=== PATIENT | female | born 2000 | race African-American/Black ===

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

== ENCOUNTER 2022-03-15 14:54 | Emergency (ER) | payer MEDICAID ==
[~2022-03-15] VITALS: Ht 162.6 cm; Wt 63.0 kg
[2022-03-15 16:01] LABS: CLARITY URINE CLEAR (CLEAR); COLOR URINE DARK YELLOW (YELLOW); KETONES URINE TRACE (NEGATIVE); LEUKOCYTE ESTERASE URINE NEGATIVE (NEGATIVE); NITRITE URINE NEGATIVE (NEGATIVE); OCCULT BLOOD URINE NEGATIVE (NEGATIVE); PROTEIN URINE TRACE (NEGATIVE); SPECIFIC GRAVITY URINE 1.035 (1.005-1.030)
[2022-03-15] MEDS ORDERED: ONDA4TAB50 PO (18:00)
[2022-03-15] MEDS ORDERED: LIDOCAINE HCL 1% 20ML VIAL (Pyxis) INJ INFIL ONE (18:00)
[2022-03-15] MEDS ORDERED: DOXY100T28 PO (18:00)
[2022-03-15] MEDS ORDERED: ALBU18HF2 IH (18:00)
[2022-03-15] MEDS ORDERED: CEFTRIAXONE SODIUM 500 MG/VIAL IM ONE (18:00)
[2022-03-15 18:55] VITALS: BP 122/69
[2022-03-18 05:12] LABS: NEISSERIA GONORRHOEAE NAA Negative (Negative)
== END 2022-03-15 18:55 | disposition home or self-care (01) ==
LOC: ER 14:54
DX: N72 Inflammatory disease of cervix uteri (principal); J45.909 Unspecified asthma, uncomplicated; J20.9 Acute bronchitis, unspecified
CPT/HCPCS: 81003; 81025; 87210; 87491; 87591; 96372; 99283; J0696; J3490

== ENCOUNTER 2022-04-07 20:12 | Emergency (ER) | payer MEDICAID, MEDICARE ==
[~2022-04-07] VITALS: Ht 162.6 cm; Wt 64.3 kg
[~2022-04-07 20:12] MED LIST: ALBU18HF2 IH; DOXY100T28 PO; ONDA4TAB50 PO
[2022-04-07 23:16] LABS: CLARITY URINE CLEAR (CLEAR); COLOR URINE YELLOW (YELLOW); KETONES URINE NEGATIVE (NEGATIVE); LEUKOCYTE ESTERASE URINE NEGATIVE (NEGATIVE); NITRITE URINE NEGATIVE (NEGATIVE); OCCULT BLOOD URINE NEGATIVE (NEGATIVE); PH URINE 6.5 (4.5-8.0); PROTEIN URINE NEGATIVE (NEGATIVE); SPECIFIC GRAVITY URINE 1.021 (1.005-1.030)
[2022-04-07 23:35] VITALS: BP 120/60
== END 2022-04-07 23:36 | disposition home or self-care (01) ==
LOC: ER 20:12
DX: R10.2 Pelvic and perineal pain (principal); J45.909 Unspecified asthma, uncomplicated; Z98.890 Other specified postprocedural states
CPT/HCPCS: 81003; 81025; 99283

== ENCOUNTER 2022-04-24 00:14 | Emergency (ER) | payer MEDICAID, MEDICARE ==
[~2022-04-24] VITALS: Ht 162.6 cm; Wt 67.0 kg
[2022-04-24 00:26] VITALS: BP 108/59
[2022-04-24] MEDS ORDERED: CEFTRIAXONE SODIUM 1 G/VIAL IM ONE (05:45)
[2022-04-24] MEDS ORDERED: DOXY100C5 MT (05:54)
[2022-04-24 05:57] LABS: CLARITY URINE CLOUDY (CLEAR); COLOR URINE DARK YELLOW (YELLOW); KETONES URINE TRACE (NEGATIVE); LEUKOCYTE ESTERASE URINE NEGATIVE (NEGATIVE); NITRITE URINE NEGATIVE (NEGATIVE); OCCULT BLOOD URINE 2+ (NEGATIVE); PH URINE 5.5 (4.5-8.0); PROTEIN URINE 1+ (NEGATIVE); SPECIFIC GRAVITY URINE 1.036 (1.005-1.030)
[2022-04-24 06:33] LABS: *AMPHETAMINES SCREEN URINE NEGATIVE (NEGATIVE); *BARBITURATES SCREEN URINE NEGATIVE (NEGATIVE); *BENZODIAZEPINES SCREEN URINE NEGATIVE (NEGATIVE); *COCAINE SCREEN URINE NEGATIVE (NEGATIVE); METHADONE URINE SCREEN NEGATIVE (NEGATIVE); OPIATES URINE SCREEN NEGATIVE (NEGATIVE); PHENCYCLIDINE URINE SCREEN NEGATIVE (NEGATIVE)
[2022-04-24 06:34] LABS: CANNABINOID URINE SCREEN PRESUMTIVE POSITIVE (NEGATIVE)
[2022-04-26 08:07] LABS: NEISSERIA GONORRHOEAE NAA Negative (Negative)
== END 2022-04-24 06:19 | disposition home or self-care (01) ==
LOC: ER 00:44
DX: Z20.2 Contact with and (suspected) exposure to infections with a predominantly sexual mode of transmission (principal); F12.10 Cannabis abuse, uncomplicated; J45.909 Unspecified asthma, uncomplicated
CPT/HCPCS: 80305; 81003; 81025; 87491; 87591; 96372; 99283; J0696

== ENCOUNTER 2022-06-16 14:43 | Emergency (ER) | payer MEDICAID ==
[~2022-06-16] VITALS: Ht 162.6 cm; Wt 67.0 kg
[~2022-06-16 14:43] MED LIST changes: +DOXY100C5 MT
[2022-06-16 15:02] VITALS: BP 103/54
== END 2022-06-16 18:40 | disposition left against medical advice (07) ==
LOC: ER 14:43
DX: Z53.21 Procedure and treatment not carried out due to patient leaving prior to being seen by health care provider (principal)

== ENCOUNTER 2022-07-29 22:23 | Emergency (ER) | payer MEDICAID ==
[~2022-07-29] VITALS: Ht 162.6 cm; Wt 63.8 kg
[2022-07-29 22:30] VITALS: BP 107/53
[2022-07-30 00:09] LABS: CLARITY URINE CLOUDY (CLEAR); COLOR URINE YELLOW (YELLOW); KETONES URINE NEGATIVE (NEGATIVE); LEUKOCYTE ESTERASE URINE TRACE (NEGATIVE); NITRITE URINE NEGATIVE (NEGATIVE); OCCULT BLOOD URINE NEGATIVE (NEGATIVE); PH URINE 6.5 (4.5-8.0); PROTEIN URINE NEGATIVE (NEGATIVE); SPECIFIC GRAVITY URINE 1.019 (1.005-1.030); UROBILINOGEN URINE 0.2 E.U./dL (0.2-1.0)
[2022-07-31] MEDS ORDERED: DOXY100T2 MT (13:22)
== END 2022-07-30 05:14 | disposition left against medical advice (07) ==
LOC: ER 22:23
DX: Z53.21 Procedure and treatment not carried out due to patient leaving prior to being seen by health care provider (principal)
CPT/HCPCS: 81003; 81025; 99283

== ENCOUNTER 2022-07-31 09:29 | Emergency (ER) | payer MEDICAID ==
[~2022-07-31] VITALS: Ht 154.9 cm; Wt 63.0 kg
[2022-07-31 09:30] VITALS: BP 107/64
[2022-07-31] MEDS ORDERED: CEFTRIAXONE SODIUM 500 MG/VIAL IM ONE (11:30)
[2022-07-31] MEDS ORDERED: CEFTRIAXONE 1 G PREMIX 50 ML IV ONE (12:15)
[2022-07-31 12:19] LABS: BASOPHILS % 0.3 % (0.0-2.0); HEMATOCRIT. 41.8 % (36.0-48.0); HEMOGLOBIN. 13.9 g/dL (12.0-16.0); LYMPHOCYTES % 10.2 % (20.0-50.0); MEAN CORPUSCULAR HEMOGLOBIN 31.1 pg (28.0-32.0); MEAN PLATELET VOLUME 8.9 fl (7.4-10.4); MONOCYTES % 2.4 % (2.0-8.0); NEUTROPHILS % 87.1 % (40.0-76.0); PLATELET 273 x1000/uL (130-400); RED BLOOD CELL COUNT 4.45 mill/uL (4.2-5.4); RED CELL DISTRIBUTION WIDTH 14.6 % (11.6-14.6)
[2022-07-31 12:20] LABS: CLARITY URINE CLOUDY (CLEAR); COLOR URINE YELLOW (YELLOW); KETONES URINE TRACE (NEGATIVE); LEUKOCYTE ESTERASE URINE 1+ (NEGATIVE); NITRITE URINE NEGATIVE (NEGATIVE); OCCULT BLOOD URINE NEGATIVE (NEGATIVE); PH URINE 8.5 (4.5-8.0); PROTEIN URINE 2+ (NEGATIVE); SPECIFIC GRAVITY URINE 1.029 (1.005-1.030)
[2022-07-31 12:49] LABS: CHLORIDE 105 mEq/L (98-107)
[2022-07-31 12:56] LABS: ETHANOL BLOOD < 10 mg/dL
[2022-07-31 13:18] LABS: HCG SCREEN NEGATIVE
[2022-07-31] MEDS ORDERED: DOXY100T2 MT (13:22)
[2022-07-31 13:49] LABS: *AMPHETAMINES SCREEN URINE NEGATIVE (NEGATIVE); *BARBITURATES SCREEN URINE NEGATIVE (NEGATIVE); *BENZODIAZEPINES SCREEN URINE NEGATIVE (NEGATIVE); *COCAINE SCREEN URINE NEGATIVE (NEGATIVE); METHADONE URINE SCREEN NEGATIVE (NEGATIVE); OPIATES URINE SCREEN NEGATIVE (NEGATIVE); PHENCYCLIDINE URINE SCREEN NEGATIVE (NEGATIVE)
[2022-07-31 15:30] LABS: CANNABINOID URINE SCREEN PRESUMTIVE POSITIVE (NEGATIVE)
== END 2022-07-31 13:29 | disposition home or self-care (01) ==
LOC: ER 09:29
DX: N89.8 Other specified noninflammatory disorders of vagina (principal); Z20.2 Contact with and (suspected) exposure to infections with a predominantly sexual mode of transmission
CPT/HCPCS: 36415; 80053; 80305; 80320; 81003; 81025; 83690; 84703; 85025; 87491; 87591; 96365; 99284; J0696; G0480

== ENCOUNTER 2022-08-30 12:43 | Emergency (ER) | payer MEDICAID ==
[~2022-08-30] VITALS: Ht 162.6 cm; Wt 63.0 kg
[~2022-08-30 12:43] MED LIST changes: +DOXY100T2 MT
[2022-08-30 12:55] VITALS: BP 117/74
[2022-08-30] MEDS ORDERED: ACETAMINOPHEN 325MG TABLET PO STA (14:24)
[2022-08-30 14:52] LABS: CLARITY URINE CLEAR (CLEAR); COLOR URINE YELLOW (YELLOW); KETONES URINE TRACE (NEGATIVE); LEUKOCYTE ESTERASE URINE NEGATIVE (NEGATIVE); NITRITE URINE NEGATIVE (NEGATIVE); OCCULT BLOOD URINE TRACE (NEGATIVE); PROTEIN URINE TRACE (NEGATIVE)
[2022-08-30] MEDS ORDERED: NAPR-681 PO (16:35)
[2022-08-30] MEDS ORDERED: METR-167 PO (16:35)
[2022-08-30] MEDS ORDERED: DOXY100T28 MT (16:35)
[2022-08-30] MEDS ORDERED: CEFTRIAXONE SODIUM 500 MG/VIAL IM ONE (16:45)
[2022-08-30] MEDS ORDERED: LIDOCAINE HCL 1% 20ML VIAL (Pyxis) INJ INFIL ONE (16:45)
[2022-09-03 07:07] LABS: NEISSERIA GONORRHOEAE NAA Negative (Negative)
== END 2022-08-30 17:02 | disposition home or self-care (01) ==
LOC: ER 14:19
DX: N72 Inflammatory disease of cervix uteri (principal); N76.0 Acute vaginitis; F12.10 Cannabis abuse, uncomplicated
CPT/HCPCS: 81003; 81025; 87210; 87491; 87591; 96372; 99283; J0696

== ENCOUNTER 2022-12-27 15:50 | Emergency (ER) | payer MEDICAID ==
[~2022-12-27] VITALS: Ht 162.6 cm; Wt 60.0 kg
[~2022-12-27 15:50] MED LIST changes: +DOXY100T28 MT; +METR-167 PO; +NAPR-681 PO
[2022-12-27 15:58] VITALS: BP 103/86
[2022-12-27] MEDS ORDERED: PHEN-910 PO (16:23)
[2022-12-27] MEDS ORDERED: DOXY100C5 PO (16:23)
[2022-12-27] MEDS ORDERED: CEPH500C2 PO (16:23)
[2022-12-27] MEDS ORDERED: DOXYCYCLINE HYCLATE 100MG CAPSULE PO ONE (16:30)
[2022-12-27] MEDS ORDERED: CEFTRIAXONE SODIUM 500 MG/VIAL IM ONE (16:30)
[2022-12-27] MEDS ORDERED: LIDOCAINE HCL 1% 20ML VIAL (Pyxis) INJ INFIL ONE (16:30)
[2022-12-27 16:50] LABS: CLARITY URINE CLOUDY (CLEAR); COLOR URINE YELLOW (YELLOW); KETONES URINE NEGATIVE (NEGATIVE); LEUKOCYTE ESTERASE URINE 3+ (NEGATIVE); NITRITE URINE NEGATIVE (NEGATIVE); OCCULT BLOOD URINE NEGATIVE (NEGATIVE); PROTEIN URINE NEGATIVE (NEGATIVE); SPECIFIC GRAVITY URINE 1.017 (1.005-1.030); UROBILINOGEN URINE 0.2 E.U./dL (0.2-1.0)
[2022-12-27 16:57] LABS: HCG SCREEN NEGATIVE
[2022-12-30 04:07] LABS: NEISSERIA GONORRHOEAE NAA Negative (Negative)
== END 2022-12-27 16:46 | disposition home or self-care (01) ==
LOC: ER 15:50
DX: N39.0 Urinary tract infection, site not specified (principal); J45.909 Unspecified asthma, uncomplicated; F12.90 Cannabis use, unspecified, uncomplicated; Z11.3 Encounter for screening for infections with a predominantly sexual mode of transmission
CPT/HCPCS: 81003; 81025; 84703; 87491; 87591; 96372; 99283; J0696; J3490

== ENCOUNTER 2024-04-15 20:03 | Emergency (ER) | payer MEDICAID ==
[~2024-04-15] VITALS: Ht 162.6 cm; Wt 67.0 kg
[~2024-04-15 20:03] MED LIST changes: +CEPH500C2 PO; +DOXY100C5 PO; +PHEN-910 PO
[2024-04-15 20:29] VITALS: TEMP 98.2; O2SAT 96
[2024-04-15 21:39] LABS: CLARITY URINE TURBID (CLEAR); COLOR URINE DARK YELLOW (YELLOW); GLUCOSE URINE NEGATIVE (NEGATIVE); KETONES URINE TRACE (NEGATIVE); LEUKOCYTE ESTERASE URINE 3+ (NEGATIVE); NITRITE URINE NEGATIVE (NEGATIVE); OCCULT BLOOD URINE 1+ (NEGATIVE); PH URINE 6.5 (4.5-8.0); PROTEIN URINE 2+ (NEGATIVE); SPECIFIC GRAVITY URINE 1.032 (1.005-1.030)
[2024-04-15 22:19] LABS: BACTERIA URINE 1+; SQUAMOUS EPITHELIAL CELL URINE 2+ /lpf (RARE/1+); WBC URINE 25-50 /hpf (0-2)
[2024-04-15] MEDS ORDERED: METR-167 PO (22:56)
[2024-04-15] MEDS ORDERED: DOXY100C5 MT (22:56)
[2024-04-15] MEDS ORDERED: CEFTRIAXONE SODIUM 500MG VIAL IM ONE (23:00)
[2024-04-15] MEDS ORDERED: DOXYCYCLINE HYCLATE 100MG CAPSULE PO ONE (23:00)
[2024-04-15] MEDS: DOXYCYCLINE HYCLATE 100MG CAPSULE PO NR (23:16)
[2024-04-15] MEDS: CEFTRIAXONE SODIUM 500MG VIAL IM NR (23:17)
[2024-04-15 23:22] VITALS: BP 100/73; PULSE 67; RESP 14
[2024-04-18 13:07] LABS: CHLAMYDIA TRACHOMATIS NAA Negative (Negative); NEISSERIA GONORRHOEAE NAA Negative (Negative)
== END 2024-04-15 23:25 | disposition home or self-care (01) ==
LOC: ER 20:03
DX: N76.0 Acute vaginitis (principal); J45.909 Unspecified asthma, uncomplicated; Z98.890 Other specified postprocedural states; Z79.899 Other long term (current) drug therapy
CPT/HCPCS: 87491; 87591; 81003; 81025; 87106; 87086; 96372; 99283; J0696; Z7610 ×2

== ENCOUNTER 2024-05-03 18:01 | Emergency (ER) | payer MEDICAID ==
[~2024-05-03] VITALS: Ht 170.2 cm; Wt 61.0 kg
[2024-05-03 18:10] VITALS: O2SAT 98
[2024-05-03 20:07] LABS: CLARITY URINE CLOUDY (CLEAR); COLOR URINE DARK YELLOW (YELLOW); GLUCOSE URINE NEGATIVE (NEGATIVE); KETONES URINE 2+ (NEGATIVE); LEUKOCYTE ESTERASE URINE 2+ (NEGATIVE); NITRITE URINE NEGATIVE (NEGATIVE); OCCULT BLOOD URINE 1+ (NEGATIVE); PROTEIN URINE TRACE (NEGATIVE); SPECIFIC GRAVITY URINE 1.032 (1.005-1.030)
[2024-05-03 20:22] LABS: BASOPHILS % 0.2 % (0.0-2.0); EOSINOPHILS % 0.5 % (0.0-5.0); HEMATOCRIT. 37.6 % (36.0-48.0); HEMOGLOBIN. 12.8 g/dL (12.0-16.0); LYMPHOCYTES % 33.9 % (20.0-50.0); MEAN CORPUSCULAR HEMOGLOBIN 32.3 pg (28.0-32.0); MEAN CORPUSCULAR HGB CONC 34.1 g/dL (31.0-37.0); MEAN CORPUSCULAR VOLUME 94.7 fL (81.0-99.0); MEAN PLATELET VOLUME 8.5 fl (7.4-10.4); MONOCYTES % 5.1 % (2.0-8.0); NEUTROPHILS % 60.3 % (40.0-76.0); PLATELET 251 x1000/uL (130-400); RED BLOOD CELL COUNT 3.97 mill/uL (4.2-5.4); RED CELL DISTRIBUTION WIDTH 14.7 % (11.6-14.6); WHITE BLOOD COUNT 7.9 x1000/uL (4.5-11.0)
[2024-05-03 20:25] LABS: CHLORIDE 106 mEq/L (98-107); POTASSIUM 3.1 mEq/L (3.5-5.1); SODIUM 137 mEq/L (136-145)
[2024-05-03 20:26] LABS: CALCIUM 9.5 mg/dL (8.7-10.4); CARBON DIOXIDE 25 mEq/L (21-32)
[2024-05-03 20:30] LABS: BACTERIA URINE 2+; SQUAMOUS EPITHELIAL CELL URINE 2+ /lpf (RARE/1+)
[2024-05-03 20:31] LABS: CREATININE 0.8 mg/dL (0.6-1.0); GLUCOSE 96 mg/dL (70-105); UREA NITROGEN BLOOD 8 mg/dL (9-23)
[2024-05-03 20:31] LABS: YEAST URINE FEW
[2024-05-03 20:32] LABS: B-HCG QUANTITATIVE 673 mIU/mL (<3)
[2024-05-03] MEDS ORDERED: NITR-87 MT (21:03)
[2024-05-03] MEDS: CEFTRIAXONE SODIUM 500MG VIAL IM ONE (21:27)
[2024-05-03] MEDS: AZITHROMYCIN 500 MG TABLET PO ONE (21:27)
[2024-05-03] MEDS: RHO(D) IMMUNE GLOBULIN 300 MCG/SYR IM NR (22:31)
[2024-05-03 22:32] VITALS: BP 104/83; PULSE 76; RESP 15; TEMP 37.16964; O2SAT 98
[2024-05-06 06:08] LABS: CHLAMYDIA TRACHOMATIS NAA Negative (Negative); NEISSERIA GONORRHOEAE NAA Negative (Negative)
== END 2024-05-03 22:32 | disposition home or self-care (01) ==
LOC: ER 18:01
DX: O20.0 Threatened abortion (principal); Z3A.01 Less than 8 weeks gestation of pregnancy; O23.41 Unspecified infection of urinary tract in pregnancy, first trimester; N39.0 Urinary tract infection, site not specified
CPT/HCPCS: 87491; 87591; 80048; 81003; 84702; 85025; 86850; 86900; 86901; 36415; 76830; 76856; 90471; 96372; 99285; 90384; J0696; Z7610; 36430; J2791

== ENCOUNTER 2024-05-17 22:00 | Emergency (ER) | payer MEDICAID ==
[~2024-05-17] VITALS: Ht 170.2 cm; Wt 68.0 kg
[~2024-05-17 22:00] MED LIST changes: +NITR-87 MT
[2024-05-17 22:22] VITALS: O2SAT 99
[2024-05-17 23:26] LABS: BASOPHILS % 0.3 % (0.0-2.0); EOSINOPHILS % 0.1 % (0.0-5.0); HEMOGLOBIN. 11.4 g/dL (12.0-16.0); MEAN CORPUSCULAR HEMOGLOBIN 32.6 pg (28.0-32.0); MEAN CORPUSCULAR HGB CONC 33.5 g/dL (31.0-37.0); MEAN CORPUSCULAR VOLUME 97.5 fL (81.0-99.0); MEAN PLATELET VOLUME 8.5 fl (7.4-10.4); NEUTROPHILS % 78.6 % (40.0-76.0); PLATELET 216 x1000/uL (130-400); RED BLOOD CELL COUNT 3.49 mill/uL (4.2-5.4); RED CELL DISTRIBUTION WIDTH 15.4 % (11.6-14.6); WHITE BLOOD COUNT 10.1 x1000/uL (4.5-11.0)
[2024-05-17 23:38] LABS: INR 1.2
[2024-05-18 00:19] LABS: HCG SCREEN POSITIVE
[2024-05-18] MEDS: SODIUM CHLORIDE 0.9% 1,000 ML IV ONE (00:33)
[2024-05-18] MEDS: ONDANSETRON HCL 4MG/2ML INJ IV NR (00:34)
[2024-05-18] MEDS: ACETAMINOPHEN 1000MG/100ML 100 ML IV ONE (00:34)
[2024-05-18] MEDS: ONDANSETRON HCL 4MG/2ML INJ IV ONE (00:34)
[2024-05-18 00:44] VITALS: BP 103/58; PULSE 73; RESP 18; TEMP 36.55848; O2SAT 98
[2024-05-18] MEDS ORDERED: RHO(D) IMMUNE GLOBULIN 300 MCG/SYR IM ONE (01:00)
[2024-05-18 02:04] LABS: CHLORIDE 105 mEq/L (98-107); POTASSIUM 3.5 mEq/L (3.5-5.1); SODIUM 137 mEq/L (136-145)
[2024-05-18 02:05] LABS: CARBON DIOXIDE 21 mEq/L (21-32)
[2024-05-18 02:10] LABS: CREATININE 0.6 mg/dL (0.6-1.0); GLUCOSE 74 mg/dL (70-105)
[2024-05-18 02:11] LABS: UREA NITROGEN BLOOD 6 mg/dL (9-23)
[2024-05-18 02:12] LABS: ALANINE AMINOTRANSFERASE 10 IU/L (10-49); ALBUMIN 3.9 g/dL (3.2-4.8); ASPARTATE AMINOTRANSFERASE 23 IU/L (<34)
[2024-05-18 02:13] LABS: BILIRUBIN DIRECT 0.3 mg/dL (<=3.0); PROTEIN TOTAL 6.5 g/dL (6.0-8.3)
[2024-05-18 02:30] LABS: B-HCG QUANTITATIVE 87785 mIU/mL (<3)
[2024-05-18] MEDS ORDERED: ONDA4TAB50 MT (03:03)
[2024-05-18] MEDS ORDERED: ACET-2708 MT (03:03)
== END 2024-05-18 03:50 | disposition home or self-care (01) ==
LOC: ER 22:00
DX: O20.0 Threatened abortion (principal); J45.909 Unspecified asthma, uncomplicated; F12.10 Cannabis abuse, uncomplicated; Z3A.01 Less than 8 weeks gestation of pregnancy; Z79.899 Other long term (current) drug therapy
CPT/HCPCS: 84703; 85025; 85610; 86900; 86901; 36415; 76801; 76817; 99285; 80076; 80048; 84702; 83690; 90384; 96365; 96375; J7030; J2405; Z7610 ×2; J0131

== ENCOUNTER 2024-05-30 13:16 | Emergency (ER) | payer MEDICAID ==
[~2024-05-30] VITALS: Ht 165.1 cm; Wt 70.0 kg
[~2024-05-30 13:16] MED LIST changes: +ACET-2708 MT; +ONDA4TAB50 MT
[2024-05-30 13:20] VITALS: BP 104/68; PULSE 80; RESP 16; TEMP 98.5; O2SAT 99
[2024-05-30 16:30] LABS: BASOPHILS % 0.2 % (0.0-2.0); EOSINOPHILS % 0.5 % (0.0-5.0); HEMATOCRIT. 35.6 % (36.0-48.0); HEMOGLOBIN. 12.1 g/dL (12.0-16.0); LYMPHOCYTES % 22.5 % (20.0-50.0); MEAN CORPUSCULAR HEMOGLOBIN 32.6 pg (28.0-32.0); MEAN CORPUSCULAR HGB CONC 33.9 g/dL (31.0-37.0); MEAN CORPUSCULAR VOLUME 96.2 fL (81.0-99.0); MEAN PLATELET VOLUME 8.2 fl (7.4-10.4); MONOCYTES % 6.6 % (2.0-8.0); NEUTROPHILS % 70.2 % (40.0-76.0); PLATELET 233 x1000/uL (130-400); RED CELL DISTRIBUTION WIDTH 14.9 % (11.6-14.6); WHITE BLOOD COUNT 8.3 x1000/uL (4.5-11.0)
[2024-05-30 16:38] LABS: CHLORIDE 105 mEq/L (98-107); POTASSIUM 3.8 mEq/L (3.5-5.1); SODIUM 135 mEq/L (136-145)
[2024-05-30 16:39] LABS: CARBON DIOXIDE 23 mEq/L (21-32)
[2024-05-30 16:40] LABS: CALCIUM 9.3 mg/dL (8.7-10.4)
[2024-05-30 16:44] LABS: CREATININE 0.7 mg/dL (0.6-1.0); GLUCOSE 80 mg/dL (70-105)
[2024-05-30 16:58] LABS: B-HCG QUANTITATIVE > 200000 mIU/mL (<3); UREA NITROGEN BLOOD < 5 mg/dL (9-23)
[2024-05-30] MEDS: ACETAMINOPHEN 325MG TABLET PO ONE (17:43)
[2024-05-30] MEDS: ONDANSETRON 4MG ODT PO PRN (17:43)
[2024-05-30 18:23] LABS: CLARITY URINE CLEAR (CLEAR); COLOR URINE RED (YELLOW); GLUCOSE URINE NEGATIVE (NEGATIVE); KETONES URINE NEGATIVE (NEGATIVE); LEUKOCYTE ESTERASE URINE TRACE (NEGATIVE); NITRITE URINE NEGATIVE (NEGATIVE); OCCULT BLOOD URINE 3+ (NEGATIVE); PH URINE 6.5 (4.5-8.0); PROTEIN URINE 1+ (NEGATIVE); SPECIFIC GRAVITY URINE 1.004 (1.005-1.030); UROBILINOGEN URINE 0.2 E.U./dL (0.2-1.0)
[2024-05-30 18:40] LABS: BACTERIA URINE 1+; RBC URINE TNTC /hpf (0-2); SQUAMOUS EPITHELIAL CELL URINE 1+ /lpf (RARE/1+)
[2024-05-30] MEDS: RHO(D) IMMUNE GLOBULIN 300 MCG/SYR IM ONE (18:44)
== END 2024-05-30 18:46 | disposition home or self-care (01) ==
LOC: ER 13:16
DX: O46.91 Antepartum hemorrhage, unspecified, first trimester (principal); O26.891 Other specified pregnancy related conditions, first trimester; J45.909 Unspecified asthma, uncomplicated; Z3A.01 Less than 8 weeks gestation of pregnancy; Z79.899 Other long term (current) drug therapy
CPT/HCPCS: 80048; 81003; 84702; 85025; 86850; 86870; 86900; 86901; 36415; 76830; 76856; 90384 ×2; 96372; 99285; Q0162; 36430; J2791

== ENCOUNTER 2024-07-17 05:50 | Emergency (ER) | payer MEDICAID ==
[~2024-07-17] VITALS: Ht 165.1 cm; Wt 62.0 kg
[2024-07-17 05:54] VITALS: O2SAT 98
[2024-07-17 06:35] LABS: CHLORIDE 110 mEq/L (98-107); SODIUM 141 mEq/L (136-145)
[2024-07-17 06:37] LABS: CALCIUM 9.9 mg/dL (8.7-10.4); CARBON DIOXIDE 29 mEq/L (21-32)
[2024-07-17 06:38] LABS: BASOPHILS % 0.3 % (0.0-2.0); EOSINOPHILS % 1.6 % (0.0-5.0); HEMOGLOBIN. 12.7 g/dL (12.0-16.0); LYMPHOCYTES % 42.7 % (20.0-50.0); MEAN CORPUSCULAR HGB CONC 33.4 g/dL (31.0-37.0); MEAN CORPUSCULAR VOLUME 95.7 fL (81.0-99.0); MEAN PLATELET VOLUME 8.4 fl (7.4-10.4); NEUTROPHILS % 48.4 % (40.0-76.0); PLATELET 253 x1000/uL (130-400); RED BLOOD CELL COUNT 3.97 mill/uL (4.2-5.4); RED CELL DISTRIBUTION WIDTH 15.1 % (11.6-14.6); WHITE BLOOD COUNT 5.2 x1000/uL (4.5-11.0)
[2024-07-17 06:42] LABS: GLUCOSE 92 mg/dL (70-105); UREA NITROGEN BLOOD 13 mg/dL (9-23)
[2024-07-17 06:43] LABS: B-HCG QUANTITATIVE 5 mIU/mL (<3)
[2024-07-17 07:58] VITALS: BP 128/72; PULSE 87; RESP 18; TEMP 36.72516; O2SAT 98
== END 2024-07-17 07:58 | disposition home or self-care (01) ==
LOC: ER 05:50
DX: O03.4 Incomplete spontaneous abortion without complication (principal); F12.90 Cannabis use, unspecified, uncomplicated; J45.909 Unspecified asthma, uncomplicated; Z98.890 Other specified postprocedural states; Z79.899 Other long term (current) drug therapy
CPT/HCPCS: 80048; 84702; 85025; 86850; 86870; 86900; 86901; 36415; 76830; 76856; 99284; Z7610

== ENCOUNTER 2024-07-25 10:35 | Emergency (ER) | payer MEDICAID ==
[~2024-07-25] VITALS: Ht 162.6 cm; Wt 66.0 kg
[2024-07-25 10:52] VITALS: O2SAT 99
[2024-07-25] MEDS: ACETAMINOPHEN 650MG/20.3ML UDC PO ONE (11:35)
[2024-07-25] MEDS: KETOROLAC 30MG/ML VIAL IM ONE (11:39)
[2024-07-25] MEDS: LIDOCAINE 5% PATCH TOP ONE (11:40)
[2024-07-25 11:49] LABS: CLARITY URINE CLEAR (CLEAR); COLOR URINE YELLOW (YELLOW); GLUCOSE URINE NEGATIVE (NEGATIVE); KETONES URINE NEGATIVE (NEGATIVE); PH URINE 6.5 (4.5-8.0); PROTEIN URINE NEGATIVE (NEGATIVE)
[2024-07-25 11:50] LABS: LEUKOCYTE ESTERASE URINE NEGATIVE (NEGATIVE); NITRITE URINE NEGATIVE (NEGATIVE); OCCULT BLOOD URINE NEGATIVE (NEGATIVE); UROBILINOGEN URINE 0.2 E.U./dL (0.2-1.0)
[2024-07-25 12:20] VITALS: BP 116/66; PULSE 72; RESP 16; TEMP 37.00296; O2SAT 99
== END 2024-07-25 13:36 | disposition home or self-care (01) ==
LOC: ER 10:35
DX: M54.50 Low back pain, unspecified (principal); J45.909 Unspecified asthma, uncomplicated; Z79.899 Other long term (current) drug therapy; V43.52XA Car driver injured in collision with other type car in traffic accident, initial encounter; Y93.89 Activity, other specified; Y92.89 Other specified places as the place of occurrence of the external cause; Y99.8 Other external cause status
CPT/HCPCS: 81003; 81025; 72100; 96372; 99284; J1885; Z7610

== ENCOUNTER 2024-08-01 08:14 | Emergency (ER) | payer MEDICAID ==
[~2024-08-01] VITALS: Ht 160 cm; Wt 60.0 kg
[2024-08-01 08:17] VITALS: O2SAT 99
[2024-08-01] MEDS ORDERED: CEFTRIAXONE SODIUM 250MG VIAL IM ONE (09:00)
[2024-08-01] MEDS ORDERED: AZITHROMYCIN 500 MG TABLET PO ONE (09:00)
[2024-08-01] MEDS ORDERED: METR-167 PO (09:39)
[2024-08-01] MEDS ORDERED: FLUCONAZOLE 50MG TABLET PO ONE (09:45)
[2024-08-01] MEDS: AZITHROMYCIN 500 MG TABLET PO NR (10:34)
[2024-08-01] MEDS: CEFTRIAXONE SODIUM 250MG VIAL IM NR (10:34)
[2024-08-01] MEDS: FLUCONAZOLE 150MG TABLET PO NR (10:34)
[2024-08-01 10:40] VITALS: BP 105/72; PULSE 65; RESP 18; TEMP 37.11408; O2SAT 99
[2024-08-02 13:10] LABS: CHLAMYDIA TRACHOMATIS NAA Negative (Negative); NEISSERIA GONORRHOEAE NAA Negative (Negative)
== END 2024-08-01 11:07 | disposition home or self-care (01) ==
LOC: ER 08:14
DX: N93.9 Abnormal uterine and vaginal bleeding, unspecified (principal); J45.909 Unspecified asthma, uncomplicated; F12.90 Cannabis use, unspecified, uncomplicated; Z98.890 Other specified postprocedural states; Z79.899 Other long term (current) drug therapy
CPT/HCPCS: 99283; 87491; 87591; 81025; J0696

== ENCOUNTER 2024-08-23 16:54 | Emergency (ER) | payer MEDICAID ==
[~2024-08-23] VITALS: Ht 157.5 cm; Wt 57.0 kg
[2024-08-23 17:18] VITALS: O2SAT 99
[2024-08-23 21:51] LABS: CLARITY URINE CLEAR (CLEAR); COLOR URINE DARK YELLOW (YELLOW); GLUCOSE URINE NEGATIVE (NEGATIVE); KETONES URINE TRACE (NEGATIVE); LEUKOCYTE ESTERASE URINE TRACE (NEGATIVE); NITRITE URINE NEGATIVE (NEGATIVE); OCCULT BLOOD URINE NEGATIVE (NEGATIVE); PH URINE 5.5 (4.5-8.0); PROTEIN URINE 1+ (NEGATIVE); SPECIFIC GRAVITY URINE 1.033 (1.005-1.030)
[2024-08-23] MEDS ORDERED: DOXY150T9 MT (21:58)
[2024-08-23 22:00] VITALS: BP 126/76; PULSE 74; RESP 18; TEMP 37.05852; O2SAT 99
[2024-08-23 22:15] LABS: BACTERIA URINE 1+; RBC URINE 0-2 /hpf (0-2); SQUAMOUS EPITHELIAL CELL URINE 2+ /lpf (RARE/1+)
[2024-08-26 04:09] LABS: CHLAMYDIA TRACHOMATIS NAA Negative (Negative); NEISSERIA GONORRHOEAE NAA Negative (Negative)
== END 2024-08-23 22:00 | disposition home or self-care (01) ==
LOC: ER 16:54
DX: R30.9 Painful micturition, unspecified (principal); J45.909 Unspecified asthma, uncomplicated; F12.90 Cannabis use, unspecified, uncomplicated; Z79.899 Other long term (current) drug therapy
CPT/HCPCS: 81003; 87491; 87591; 99283

== ENCOUNTER 2024-09-15 12:00 | Emergency (ER) | payer MEDICAID ==
[~2024-09-15] VITALS: Ht 162.6 cm; Wt 58.0 kg
[~2024-09-15 12:00] MED LIST changes: +DOXY150T9 MT
[2024-09-15 12:22] VITALS: BP 107/66; PULSE 93; RESP 18; TEMP 98.5; O2SAT 100
[2024-09-15] MEDS ORDERED: PNV1TABL50 MT (15:02)
[2024-09-15] MEDS ORDERED: PREN1COM15 MT (15:33)
[2024-09-15 15:41] LABS: CLARITY URINE CLEAR (CLEAR); COLOR URINE YELLOW (YELLOW); GLUCOSE URINE NEGATIVE (NEGATIVE); KETONES URINE NEGATIVE (NEGATIVE); LEUKOCYTE ESTERASE URINE NEGATIVE (NEGATIVE); NITRITE URINE NEGATIVE (NEGATIVE); OCCULT BLOOD URINE NEGATIVE (NEGATIVE); PH URINE 7.5 (4.5-8.0); PROTEIN URINE NEGATIVE (NEGATIVE); SPECIFIC GRAVITY URINE 1.022 (1.005-1.030)
[2024-09-19 04:07] LABS: CHLAMYDIA TRACHOMATIS NAA Negative (Negative); NEISSERIA GONORRHOEAE NAA Negative (Negative)
== END 2024-09-15 15:53 | disposition home or self-care (01) ==
LOC: ER 12:00
DX: M79.672 Pain in left foot (principal); M54.9 Dorsalgia, unspecified; F12.10 Cannabis abuse, uncomplicated; J45.909 Unspecified asthma, uncomplicated; Z79.899 Other long term (current) drug therapy; Z32.01 Encounter for pregnancy test, result positive; V49.9XXA Car occupant (driver) (passenger) injured in unspecified traffic accident, initial encounter; Y93.89 Activity, other specified; Y92.89 Other specified places as the place of occurrence of the external cause; Y99.8 Other external cause status
CPT/HCPCS: 73610; 73630; 81003; 87491; 87591; 99284

== ENCOUNTER 2024-11-18 11:31 | Emergency (ER) | payer MEDICAID ==
[~2024-11-18] VITALS: Ht 154.9 cm; Wt 63.5 kg
[~2024-11-18 11:31] MED LIST changes: +PREN1COM15 MT
[2024-11-18 12:13] VITALS: O2SAT 99
[2024-11-18] MEDS: LIDOCAINE HCL/PF 1% 10 MG/ML 5ML VIAL INFIL ONE (15:24)
[2024-11-18] MEDS: CEFTRIAXONE SODIUM 1G VIAL IM ONE (15:24)
[2024-11-18] MEDS: METHYLPREDNISOLONE SOD SUCC 125MG/2ML (ACT-O-VIAL) IM STA (15:24)
[2024-11-18] MEDS: KETOROLAC 30MG/ML VIAL IM STA (15:24)
[2024-11-18] MEDS ORDERED: CEPH500C2 MT (15:44)
[2024-11-18 15:49] VITALS: BP 117/74; PULSE 95; RESP 18; TEMP 36.6; O2SAT 99
== END 2024-11-18 15:50 | disposition home or self-care (01) ==
LOC: ER 12:33
DX: J02.9 Acute pharyngitis, unspecified (principal); R59.0 Localized enlarged lymph nodes; I10 Essential (primary) hypertension; F12.90 Cannabis use, unspecified, uncomplicated; J45.909 Unspecified asthma, uncomplicated
CPT/HCPCS: 81025; 87430; 87070; 96372; 99284; J0696; J1885; J2003; J2919; Z7610

== ENCOUNTER 2025-01-29 18:33 | Emergency (ER) | payer MEDICAID ==
[~2025-01-29] VITALS: Ht 162.6 cm; Wt 66.0 kg
[~2025-01-29 18:33] MED LIST changes: +CEPH500C2 MT
[2025-01-29 18:41] VITALS: TEMP 37.2; O2SAT 99
[2025-01-29] MEDS ORDERED: METR60GE TP (21:05)
[2025-01-29] MEDS ORDERED: DOXY100T28 MT (21:05)
[2025-01-29] MEDS: CEFTRIAXONE SODIUM 500MG VIAL IM ONE (21:19)
[2025-01-29 21:21] VITALS: BP 109/79; PULSE 85; RESP 17; O2SAT 98
== END 2025-01-29 21:28 | disposition home or self-care (01) ==
LOC: ER 18:33
DX: N89.8 Other specified noninflammatory disorders of vagina (principal); A64 Unspecified sexually transmitted disease; J45.909 Unspecified asthma, uncomplicated; F12.90 Cannabis use, unspecified, uncomplicated; Z79.899 Other long term (current) drug therapy
CPT/HCPCS: 99283; 96372; J0696

== ENCOUNTER 2025-05-30 09:18 | Emergency (ER) | payer MEDICAID ==
[~2025-05-30] VITALS: Ht 162.6 cm; Wt 64.0 kg
[~2025-05-30 09:18] MED LIST changes: +METR60GE TP
[2025-05-30 09:23] VITALS: O2SAT 100
[2025-05-30 11:09] LABS: BASOPHILS % 0.2 % (0.0-2.0); EOSINOPHILS % 0.9 % (0.0-5.0); HEMATOCRIT. 40.8 % (36.0-48.0); HEMOGLOBIN. 13.6 g/dL (12.0-16.0); LYMPHOCYTES % 40.0 % (20.0-50.0); MEAN PLATELET VOLUME 8.9 fl (7.4-10.4); MONOCYTES % 6.5 % (2.0-8.0); NEUTROPHILS % 52.4 % (40.0-76.0); PLATELET 200 x1000/uL (130-400); RED BLOOD CELL COUNT 4.19 mill/uL (4.2-5.4); RED CELL DISTRIBUTION WIDTH 13.5 % (11.6-14.6)
[2025-05-30 11:29] LABS: CREATININE 0.9 mg/dL (0.6-1.0); UREA NITROGEN BLOOD 8 mg/dL (9-23)
[2025-05-30 11:30] LABS: TROPONIN I HIGH SENSITIVITY < 4 ng/L (3.0-34)
[2025-05-30 11:31] LABS: ASPARTATE AMINOTRANSFERASE 23 IU/L (<34); BILIRUBIN DIRECT 0.2 mg/dL (<=3.0); BILIRUBIN TOTAL 0.6 mg/dL (0.1-1.0); PROTEIN TOTAL 7.2 g/dL (6.0-8.3)
[2025-05-30] MEDS: KETOROLAC 30MG/ML VIAL IM ONE (11:39)
[2025-05-30] MEDS ORDERED: LIDO700A30 TP (11:42)
[2025-05-30] MEDS ORDERED: METH-653 MT (11:42)
[2025-05-30 11:57] VITALS: BP 115/62; PULSE 70; RESP 18; TEMP 37.1; O2SAT 100
== END 2025-05-30 11:58 | disposition home or self-care (01) ==
LOC: ER 09:18
DX: R07.89 Other chest pain (principal); M54.9 Dorsalgia, unspecified; J45.909 Unspecified asthma, uncomplicated
CPT/HCPCS: 99285; 71045; 80076; 80048; 85025; 84484; 36415; 93005; 96372; J1885

== ENCOUNTER 2025-08-06 12:55 | Emergency (ER) | payer MEDICAID ==
[~2025-08-06] VITALS: Ht 167.6 cm; Wt 83.0 kg
[~2025-08-06 12:55] MED LIST changes: +LIDO700A30 TP; +METH-653 MT
[2025-08-06 13:11] VITALS: TEMP 36.8; O2SAT 100
[2025-08-06 16:06] LABS: COLOR URINE YELLOW (YELLOW); GLUCOSE URINE NEGATIVE (NEGATIVE); KETONES URINE NEGATIVE (NEGATIVE); LEUKOCYTE ESTERASE URINE NEGATIVE (NEGATIVE); NITRITE URINE NEGATIVE (NEGATIVE); OCCULT BLOOD URINE TRACE (NEGATIVE); PH URINE 6.5 (4.5-8.0); PROTEIN URINE NEGATIVE (NEGATIVE); SPECIFIC GRAVITY URINE 1.026 (1.005-1.030); UROBILINOGEN URINE 0.2 E.U./dL (0.2-1.0)
[2025-08-06] MEDS ORDERED: DOXY-461 MT (16:12)
[2025-08-06] MEDS: CEFTRIAXONE SODIUM 500MG VIAL IM ONE (16:28)
[2025-08-06 16:38] VITALS: BP 122/68; PULSE 79; RESP 18; O2SAT 100
[2025-08-06 17:40] LABS: CLARITY URINE SL HAZY (CLEAR)
[2025-08-06 17:42] LABS: RBC URINE NONE SEEN /hpf (0-2); WBC URINE 0-2 /hpf (0-2)
[2025-08-06 17:43] LABS: BACTERIA URINE NONE SEEN; SQUAMOUS EPITHELIAL CELL URINE RARE /lpf (RARE/1+)
[2025-08-09 04:12] LABS: CHLAMYDIA TRACHOMATIS NAA Negative (Negative); NEISSERIA GONORRHOEAE NAA Negative (Negative)
[2025-08-11 04:07] LABS: HSV TYPE 2 SPECIFIC AB IGG Non Reactive (Non Reactive)
== END 2025-08-06 16:40 | disposition home or self-care (01) ==
LOC: ER 12:55
DX: Z11.3 Encounter for screening for infections with a predominantly sexual mode of transmission (principal); J45.909 Unspecified asthma, uncomplicated; Z79.899 Other long term (current) drug therapy
CPT/HCPCS: 99283; 86592; 86695; 86696; 87491; 87591; 81003; 81025; 36415; 96372; J0696